=== PATIENT | male | born 1995 | race Caucasian/White ===

== ENCOUNTER 2018-06-24 18:45 | Emergency (ER) | payer SELFPAY ==
[~2018-06-24] VITALS: Ht 190.5 cm; Wt 102.1 kg
[~2018-06-24 18:45] MED LIST: AMOXICILLIN PO; Albuterol inhaler INH; BACTRIM DS 8001 TA1 PO; BACTRIM DS 8001 TAB PO; CLA PO; CLARITIN10 MG PO; KEFLEX250 MG PO; LIDEX 0.05% CRE15 GM T; MOTRIN400 MG; MOTRIN600 MG PO; MOTRIN800 MG PO; PRELONE5 MG/5 ML PO; ROBITUSSIN DM120 ML PO; SEPTRA DS 800 M1 TAB PO; SEPTRA DS1 TAB PO; TYLENOL500 MG PO; ZITHROMAX Z PA250 MG PO
[2018-06-24 18:47] VITALS: BP 129/71
[2018-06-24] MEDS ORDERED: IBU800 MG PO (19:52)
[2018-06-24] MEDS ORDERED: PREDNISONE50 MG PO (19:52)
== END 2018-06-24 22:19 | disposition home or self-care (01) ==
LOC: ED 18:45
DX: M25.561 Pain in right knee (principal); F17.200 Nicotine dependence, unspecified, uncomplicated; Z91.012 Allergy to eggs; Z91.010 Allergy to peanuts; Z91.018 Allergy to other foods